=== PATIENT | female | born 1985 | race Caucasian/White ===

== ENCOUNTER 2017-05-22 15:42 | Emergency (ER) | payer SELFPAY ==
[~2017-05-22] VITALS: Ht 167.6 cm; Wt 56.7 kg
--- NOTE | 2017-05-22 17:18 | NUR ---
Patient discharged to home in stable conditon. Written and verbal after care instructions given to patient. Patient verbalizes understanding of instructions.
== END 2017-05-22 17:44 | disposition home or self-care (01) ==
LOC: ER 15:43
DX: S16.1XXA Strain of muscle, fascia and tendon at neck level, initial encounter (principal); V43.52XA Car driver injured in collision with other type car in traffic accident, initial encounter; Y93.89 Activity, other specified; Y92.9 Unspecified place or not applicable; Y99.9 Unspecified external cause status
CPT/HCPCS: A4663